=== PATIENT | female | born 1970 | race Caucasian/White ===

== ENCOUNTER → 2022-04-27 13:03 | Outpatient (CLI) | payer SELFPAY ==
--- NOTE | ~2022-04-27 | XR_ITS ---
EXAM: XR knee RT 3V, XR knee LT 3V DATE: 04/27/2022 13:31 HISTORY: M17.10 - Unilateral primary osteoarthritis, unspecified knee . COMPARISON: None available. FINDINGS: Decreased mineralization. No fracture or dislocation. No lytic or blastic lesion. Mild rizwan ateral medial and lateral joint space narrowing. Mild bilateral medial and patellofemoral osteophytos is. No erosion or periosteal change. Soft tissues within normal limits. IMPRESSION: Mild bilateral knee osteoarthritis. Reviewed, dictated and finalized at location K. IMPRESSION: Mild bilateral knee osteoarthritis.
== END ==
PROVIDERS: PCP Internal Medicine; Visit Provider Internal Medicine
DX: M17.0 Bilateral primary osteoarthritis of knee (principal)
CPT/HCPCS: 73562

== ENCOUNTER → 2023-01-14 07:57 | Outpatient (CLI) | payer OTHER, SELFPAY ==
--- NOTE | ~2023-01-14 | US_ITS ---
EXAMINATION: US abdomen limited DATE: 01/14/2023 08:42 INDICATION: Unspecified abdominal pain, history of pancreatitis TECHNIQUE: Multiple grayscale and Doppler ultrasound images of the abdomen were obtained. COMPARISON: None available FINDINGS: There is questionable mild enlargement of the pancreatic duct. The liver is normal with nor mal echogenicity and echotexture. No surface nodularity. Normal hepatopetal flow in the main portal v ein. There is a 3 mm polyp or small stone of the gallbladder fundus. There is no gallbladder wall thi ckening or pericholecystic fluid. The mildly dilated common bile duct measures 7 mm. There was no son ographic Evans sign however sensitivity can be decreased by pain medication. IMPRESSION: 1. Mildly dilated common bile duct and possible mild enlargement of the pancreatic duct. Findings cou ld be seen in the setting of prior pancreatitis as given in the clinical history or also stone or str icture of the distal ducts. Consider further evaluation with MRCP or pancreas protocol CT without and with contrast. Reviewed, dictated and finalized at location L. IMPRESSION: 1. Mildly dilated common bile duct and possible mild enlargement of the pancrea tic duct. Findings could be seen in the setting of prior pancreatitis as given in the clinical history or also stone or stricture of the distal ducts. Conside r further evaluation with MRCP or pancreas protocol CT without and with contras t.
== END ==
PROVIDERS: PCP Internal Medicine; Visit Provider Internal Medicine
DX: R79.89 Other specified abnormal findings of blood chemistry (principal); R10.9 Unspecified abdominal pain; Z87.19 Personal history of other diseases of the digestive system
CPT/HCPCS: 76705

== ENCOUNTER 2023-02-12 05:59 | Day surgery (SDC) | payer OTHER, SELFPAY ==
[2023-02-02 14:48] VITALS: BMI 20.9
[2023-02-12 06:38] VITALS: BP 101/88; PULSE 83; RESP 20; TEMP 37.2; O2SAT 96; BMI 19.1
--- NOTE | 2023-02-12 07:02 | WPDANESEPPF ---
Anes - Initial Pre Proc Eval Procedure: Operation Date: 02/12/23 07:30 Proposed Procedures p Partial Plantar Fasciectomy Left Foot - Shayan Berger JR, MD Date/Time: 02/12/23 07:02 Surgeon: Shayan Berger JR, MD Pre Op Diagnosis: Plantar Fasciitis Left Foot Patient Data Age: 52 Gender: F Height: 1.68 m Weight: 53.9 kg Last Vital Signs Temp 37.2 C 02/12/23 06:38 Pulse 83 02/12/23 06:38 Resp 20 02/12/23 06:38 BP 101/88 02/12/23 06:38 Pulse Ox 96 02/12/23 06:38 O2 Del Method Room Air 02/12/23 06:38 Allergies Allergy/AdvReac Type Severity Reaction Status Date / Time morphine Allergy Unknown Swelling Verified 02/12/23 06:33 Penicillins Allergy Unknown Hives Verified 02/12/23 06:33 itzel Allergy Unknown Unknown Verified 02/12/23 06:33 ibuprofen AdvReac Unknown Ulcers Verified 02/12/23 06:33 Home Medications Medication Instructions Recorded Confirmed Type tramadol 50 mg tablet 50 mg PO Q4-6H PRN pain #60 tabs 02/03/23 02/12/23 Rx Patient hx anesthesia problems: none Family hx anesthesia problems: none Results Review: All pre-operative results and documents have been reviewed as part of the pre-operative evaluation. [facility] Past Medical History Medical History Abdominal pain BMI 21.0-21.9, adult BMI 23.0-23.9, adult Breast cancer screening Colon cancer screening DJD (degenerative joint disease) of knee Elevated LFTs Encounter for preventive health examination Encounter to establish care History of skin cancer Hx of pancreatitis Left foot pain Tobacco abuse Social History Social History Years smoked: 20 Smoking status: Current every day smoker Tobacco type: cigarettes Second hand tobacco smoke exposure: Yes Alcohol intake: never Substance use: never Substance use type: does not use Lack of Transportation: No Lack of Food: Never True Current Housing: I Have Housing Concerned About Future Housing: No Difficulty Paying Gas/Electric Bills: No Difficulty Paying for Meds: No Currently Unemployed: No Education: High School Diploma/GED Difficulty w/ Childcare or Family Care: No Living arrangements: with family Occupation/Education: occupation Gender identity (if verbalized by the patient): Female Spiritual care concerns: No Anes - Eval Final PreProcedure Day of Procedure 02/12/23 07:02 Patient weight: normal Heart: regular rate and rhythm Lungs: clear to auscultation Airway: Mallampati scale class 1 Neurological: alert and oriented Last oral intake: >/= 8 hours ASA classification: II Emergent: no Anesthetic plan: proceed Anesthesia type and monitoring: general GIVS and standard monitoring Results Review: All pre-operative results and documents have been reviewed as part of the pre-operative evaluation. Informed Consent: The patient's anesthetic plan and its attendant risks and benefits were discussed with the patient/family/POA. Questions were solicited and answers provided to the satisfaction of the patient/family/POA.
[2023-02-12] MEDS: LACTATED RINGERS 1,000 ML 30 ML IV CONT (07:03)
[2023-02-12] MEDS: SCOPOLAMINE 1.5 MG PATCH TRANSDERM (07:06)
--- NOTE | 2023-02-12 07:21 | WPDHPUPDATE1 ---
History and Physical Update Update Date/Time: 02/12/23 07:21 History and Physical has been reviewed, including an updated exam of the patient. There are NO changes in the patient's condition. Risks, benefits, and alternatives have been discussed and questions answered. Patient agrees to proceed with procedure.
[2023-02-12] MEDS: ceFAZolin SODIUM 2 GM/20 ML SW SYRINGE IV PUSH (07:31)
[2023-02-12 08:16] VITALS: BP 88/67; PULSE 67; RESP 14; O2SAT 99
--- NOTE | 2023-02-12 08:20 | P.OP_ITS ---
Procedure Note - Detailed Date of Procedure 02/12/23 Pre-op Diagnosis Plantar Fasciitis Left Foot Post-op Diagnosis Same Procedure Performed Partial Plantar fasciectomy left foot Surgeon Shayan Berger JR, DPM Anesthesia MAC and Local Indications Recalcitrant left heel pain Findings Narrow thick proximal plantar facia Description of Procedure Under mild sedation, the patient was brought in to the operating room, placed on the operating table in the supine position. A pneumatic ankle tourniquet was placed about the patient's ankle. Following general anesthesia, local anesthesia was obtained about the affected lower extremity utilizing 20 mL of a one to mix of 2% Lidocaine plain and 0.5% Marcaine plain to the tibial nerve. The foot was then scrubbed, prepped, and draped in the usual aseptic manner. An Esmarch bandage was then used to exsanguinate the patient's foot and the pneumatic ankle tourniquet was then inflated. Next, an incision was made starting distal to the medial tubercle of the calca neus extending distally 3cm. All bleeders were cauterized as necessary. An additional 10mL of 2% Lidocaine plain were infiltrated proximal to the incision. Next the dissection was continued down to the plantar fascia it was exposed medially and laterally with [place] retractors. Two thirds of the medial plantar fascia was transected and a 4mm portion was also cut and discarded. The wound site was flushed with sterile saline. The deep subcutaneous tissue was reapproximated with 4.0 Vicryl and the skin was reapproximated with 2.0 Prolene and 3.0 Prolene in Vertical mattress and Simple interrupted suture technique correspondingly. Upon completion of the procedure, the plantar incision was dressed with adaptic, 4x4 gauze, kerlix and coban. The pneumatic ankle tourniquet was then deflated and a prompt hyperemic response was noted to all digits of the affected foot. A CAM Walker boot was then applied. The patient did very well with the procedure and the anesthesia. The patient was transferred to the recovery room with vital signs stable and vascular status intact to all toes of the affected foot. Following a period of postoperative monitoring, the patient will be discharged home on the following written and oral postoperative instructions: 1. The patient should keep the dressing clean, dry, and intact. Use a cast protector bag with showers. 2. The patient will be strictly protected weight bearing with CAM walker boot. 3. Patient should ice and elevate the affected foot when at rest. 4. The patient is to contact Dr. Berger for all postop care and if any problems arise. 5. Prescriptions were written for Percocet 5/325 dispensed 40 to be taken 1 p.o. q.4-6 hours as needed for severe pain. Estimated Blood Loss 1 Pathology None sent Complications No immediate complications Condition Stable Disposition Same day
[2023-02-12] MEDS: LIDOCAINE HCL 2% LOCAL INJ 20 ML VIAL INFILTRATE (08:21)
[2023-02-12 08:41] VITALS: BP 115/76; PULSE 75; RESP 16; O2SAT 100
[2023-02-12 09:00] VITALS: BP 119/82; PULSE 60; RESP 16; O2SAT 98
--- NOTE | 2023-02-12 09:40 | WPDANESPN ---
Anes - Prog Note Post-Op Date/Time: 02/12/23 09:40 Cardiovascular status: normal Respiratory status: normal Airway patency: baseline Mental status: baseline Post-Op hydration status: normal Vital Signs: Last Vital Signs Temp 37.2 C 02/12/23 06:38 Pulse 60 02/12/23 09:00 Resp 16 02/12/23 09:00 BP 119/82 02/12/23 09:00 Pulse Ox 98 02/12/23 09:00 O2 Del Method Room Air 02/12/23 09:00 Pain Score (VAS): 0 I/O: Intake & Output 02/11/23 02/12/23 02/12/23 23:59 07:59 15:59 Intake Total 150 Balance 150 Patient Feedback: Patient satisfied with anesthetic care.
== END 2023-02-12 09:16 | disposition home or self-care (01) ==
PROVIDERS: PCP Internal Medicine; Visit Provider Podiatrist Foot & Ankle Surgery
PROC: (CPT 29893; principal; 2023-02-12 07:30)
DX: M72.2 Plantar fascial fibromatosis (principal)
CPT/HCPCS: 28060

== ENCOUNTER 2023-02-19 10:09 | Emergency (ER) | payer OTHER, SELFPAY ==
--- NOTE | ~2023-02-19 | CT_ITS ---
EXAMINATION: CT abdomen pelvis wo/w con DATE: 02/19/2023 13:25 INDICATION: Upper abdominal pain. Pancreatic ductal dilation. TECHNIQUE: Computed tomography (CT) of the abdomen and pelvis was performed without and with 100 cc O mnipaque 350 intravenous contrast. The dose-length product was 587.01 mGy-cm. Automated exposure cont rol and iterative reconstruction technique were employed. COMPARISON: None. FINDINGS: There is a possible subtle hypovascular mass of the pancreatic head measuring 3.7 x 1.9 cm, seen on postcontrast venous phase only. There are pancreatic calcifications, consistent with chronic pancreatitis. Gallbladder is present. Mild intrahepatic biliary dilatation. The spleen, adrenal glands and kidneys are unremarkable. Nonobstructive bowel gas pattern. No significant vascular abnormality. Small amount of free fluid in the pelvis, likely physiologic. No free air. Gallbladder is present. No significant vascular abnormality. No lymphadenopathy. There is dilated pancreatic duct. Lung bases are unremarkable. No significant pleural or pericardial effusion. IMPRESSION: 1. Chronic pancreatitis with dilated pancreatic duct. Possible subtle pancreatic head mass seen on po stcontrast venous phase imaging only. Recommend correlation with MRI of the abdomen without and with contrast for further assessment. Mild intra and extrahepatic biliary dilation. Reviewed, dictated and finalized at location B. IMPRESSION: 1. Chronic pancreatitis with dilated pancreatic duct. Possible subtle pancreati c head mass seen on postcontrast venous phase imaging only. Recommend correlati on with MRI of the abdomen without and with contrast for further assessment. Mi ld intra and extrahepatic biliary dilation.
[2023-02-19 11:03] VITALS: BP 121/84; PULSE 110; RESP 14; TEMP 36.7; O2SAT 98
[2023-02-19 11:31] LABS: Basophils Percent Auto 0.6 % (0.2-1.2); Eosinophils Absolute Auto 0.2 K/mm3 (0-0.3); Eosinophils Percent Auto 2.2 % (0-4.4); Hematocrit 50.4 % (37.0-47.0); Hemoglobin 16.4 g/dL (12.0-15.0); Immature Granulocyte Absolute 0.02 K/mm3 (0.00-0.031); Immature Granulocyte Percent A 0.3 % (0-0.5); Lymphocytes Absolute Auto 1.75 K/mm3 (0.9-3.2); Lymphocytes Percent Auto 25.7 % (18.3-44.2); Mean Corpuscular HGB Conc 32.5 g/dl (32-36); Mean Corpuscular Hemoglobin 28.4 pg (26-34); Mean Corpuscular Volume 87.2 fl (80-100); Mean Platelet Volume 9.3 fl (7.4-10.4); Monocytes Absolute Auto 0.5 K/mm3 (0.1-0.6); Monocytes Percent Auto 6.9 % (2.6-8.5); Neutrophils Absolute Auto 4.4 K/mm3 (1.3-6.7); Neutrophils Percent Auto 64.3 % (45.5-73.1); Platelet Count Result 287 k/mm3 (150-375); Red Blood Count 5.78 M/mm3 (4.2-5.4); Red Cell Distribution Width 12.6 % (11.5-14.5); White Blood Count 6.8 K/mm3 (4.5-10.0)
[2023-02-19 11:34] LABS: Appearance Urine Cloudy (Clear); Bacteria Urine None Seen /hpf; Bilirubin Urine Negative (Negative); Blood Urine Negative (Negative); Color Urine Yellow (Yellow); Glucose Urine UA Negative (Negative); Ketones Urine Negative (Negative); Leukocyte Esterase Ur Negative LEU/UL (Negative); Nitrate Urine Negative (Negative); Non Pathogenic Casts 0-2; Protein Urine Negative (Negative); RBC Urine 0-2 /hpf (0-2); Specific Grav Ur 1.004 (1.001-1.035); Squamous Epithelial Cell Urine None seen /hpf (Few); Urobilinogen Urine 0.2 mg/dL (<2.0); WBC Urine 0-5 /hpf; pH Urine 7.5 (5.0-9.0)
[2023-02-19 11:40] LABS: Alanine Aminotransferase 80 U/L (6-35); Albumin Level 4.9 g/dL (3.5-5.1); Alkaline Phosphatase 95 U/L (38-126); Anion Gap 8 mmol/L (8-16); Aspartate Amino Transferase 48 U/L (14-36); Bilirubin,Total 0.9 mg/dL (0.2-1.3); Blood Urea Nitrogen 7 mg/dL (7-17); Calcium 10.1 mg/dL (8.4-10.2); Carbon Dioxide 27 mmol/L (22-30); Chloride 103 mmol/L (98-107); Estimated CRCL calculation 82 ml/min; Estimated Glomerular Filt Rate > 60; Glucose 97 mg/dL (65-110); Lipase 207 U/L (23-300); Potassium 4.2 mmol/L (3.4-5.0); Sodium 138 mmol/L (137-145)
[2023-02-19 11:45] LABS: Add Urine Microscopic? YES
[2023-02-19 12:37] LABS: Pregnancy On Board Control Positive; Urine Pregnancy Test Negative
[2023-02-19] MEDS: SODIUM CHLORIDE 0.9% IV 1,000 ML 999 ML IV CONT (13:04)
[2023-02-19] MEDS: ONDANSETRON INJ 4 MG/2 ML VIAL IV PUSH (13:04)
[2023-02-19 13:30] VITALS: BP 119/94; PULSE 82; RESP 22; O2SAT 94
[2023-02-19 14:00] VITALS: BP 119/70; PULSE 65; RESP 18; O2SAT 100
[2023-02-19 14:18] VITALS: BP 96/68; PULSE 74; RESP 20; O2SAT 100
--- NOTE | 2023-02-19 15:15 | ED.ABDPAIN ---
HPI - Abdominal Pain General Chief Complaint: Abdominal Pain Stated Complaint: ruq pain/back pain/nausea Time Seen by Provider: 02/19/23 12:07 Source: patient, RN notes reviewed and old records reviewed Mode of arrival: ambulatory Limitations: no limitations History of Present Illness HPI narrative: This is a 52 year old female with history of chronic pancreatitis who presents for upper abdominal pain. she reports having intermittent upper abdominal pain for several weeks. This pain will last from 15 minutes - 1 hour. She denies having pain currently . She also reprots her pain will radiate to her back. Her pain does worsen with eating or drinking. She had an abdominal US 1 month ago. She states it shows duct dilation so she has MRI abdomen ordered next week. SHe states her pain is worsening so she came to ER. She is having some nausea and vomiting with her pain. She has not had emesis in 2 days. She reports normal bowel movements. She denies fever or chills. Related Data Allergies Allergy/AdvReac Type Severity Reaction Status Date / Time morphine Allergy Unknown Swelling Verified 02/12/23 06:33 Penicillins Allergy Unknown Hives Verified 02/12/23 06:33 itzel Allergy Unknown Unknown Verified 02/12/23 06:33 ibuprofen AdvReac Unknown Ulcers Verified 02/12/23 06:33 Review of Systems Constitutional: Constitutional: Denies weakness Cardiovascular: Cardiovascular: Denies syncope, Denies rapid heart rate, Denies irregular heart rhythm, Denies leg edema and Denies dyspnea Respiratory: Respiratory: Denies chest congestion, Denies hemoptysis, Denies excessive phlegm production and Denies dyspnea Gastrointestinal: Gastrointestinal: Reports abdominal pain, Denies hematochezia, Denies diarrhea, Reports nausea and Reports vomiting Genitourinary: Genitourinary: Denies hematuria and Denies dysuria Musculoskeletal: Musculoskeletal: Reports arthralgias (left foot pain from surgery), Denies joint swelling, Denies loss of height and Denies muscle weakness Neurologic: Denies syncope, Denies focal weakness and Denies weakness PMFSH Past Medical History Medical History Abdominal pain BMI 21.0-21.9, adult BMI 23.0-23.9, adult Breast cancer screening Colon cancer screening DJD (degenerative joint disease) of knee Elevated LFTs Encounter for preventive health examination Encounter to establish care History of skin cancer Hx of pancreatitis Left foot pain Tobacco abuse Social History Social History Years smoked: 20 Smoking status: Current every day smoker Tobacco type: cigarettes Second hand tobacco smoke exposure: Yes Alcohol intake: never Substance use: never Substance use type: does not use Lack of Transportation: No Lack of Food: Never True Current Housing: I Have Housing Concerned About Future Housing: No Difficulty Paying Gas/Electric Bills: No Difficulty Paying for Meds: No Currently Unemployed: No Education: High School Diploma/GED Difficulty w/ Childcare or Family Care: No Living arrangements: with family Occupation/Education: occupation Gender identity (if verbalized by the patient): Female Spiritual care concerns: No Exam Const: General: no acute distress and alert Nutritional Appearance: well nourished Orientation/consciousness: patient oriented x3 HENMT: Head: normal to inspection Mouth: Yes Normal oral and palatal mucosa present Eyes: EOM: EOMs intact bilaterally Neck: Neck: normal visual inspection Chest: Chest palpation & inspection: normal inspection of the chest Resp: Effort & Inspection: normal respiratory effort Auscultation: clear to auscultation bilaterally Cardio: Rate: regular rate Rhythm: regular rhythm Heart sounds: no murmurs GI: GI Palp: Yes Soft to palpation, Yes Tenderness to palpation present (GI) (epigastric, LUQ), No Guarding due to
[2023-02-19] MEDS: PANTOPRAZOLE SODIUM IV 40 MG VIAL IV PUSH (15:30)
[2023-02-19] MEDS: KETOROLAC 15 MG/ML VIAL (*BKC) IV PUSH (15:31)
[2023-02-19 16:04] VITALS: BP 118/78; PULSE 82; RESP 16; TEMP 36.6; O2SAT 98
== END 2023-02-19 16:05 | disposition home or self-care (01) ==
PROVIDERS: Emergency Medicine; Emergency Provider General Practice; PCP Internal Medicine
DX: K86.1 Other chronic pancreatitis (principal); R10.13 Epigastric pain; M17.9 Osteoarthritis of knee, unspecified; Z85.828 Personal history of other malignant neoplasm of skin; F17.210 Nicotine dependence, cigarettes, uncomplicated; R93.5 Abnormal findings on diagnostic imaging of other abdominal regions, including retroperitoneum
CPT/HCPCS: 36415; 74178; 80053; 81001; 81025; 83690; 85025; 96361; 96374; 96375; 99284; C9113; J1885; J2405; J7030; Q9967

== ENCOUNTER → 2023-02-23 08:09 | Outpatient (CLI) | payer OTHER, SELFPAY ==
--- NOTE | ~2023-02-23 | MR_ITS ---
EXAMINATION: MR abdomen wo/w con DATE: 02/23/2023 09:15 INDICATION: Unspecified abdominal pain. TECHNIQUE: Magnetic resonance imaging (MRI) of the abdomen was performed without and with 12 mL Multi Laury intravenous contrast. COMPARISON: CT abdomen and pelvis 02/19/2023 FINDINGS: There is an 8 mm cyst in the liver. The gallbladder is normal in size. The common duct is mildly dila juli to 8 mm. No choledocholithiasis. The spleen is normal. The pancreatic duct is mildly dilated. The CT demonstrates scattered calcifications in the head of the pancreas. These findings are consistent with chronic pancreatitis. The adrenal glands and kidneys are normal. There are no dilated loops of b owel. There is periceliac and peripancreatic lymphadenopathy. For example, a peripancreatic node liborio ures 4.6 x 1.8 cm. There is no free intraperitoneal fluid. IMPRESSION: 1. Chronic pancreatitis. 2. Periceliac and peripancreatic lymphadenopathy. The differential diagnosis includes reactive lympha denopathy, metastatic disease, and lymphoma. Reviewed, dictated and finalized at location A. IMPRESSION: 1. Chronic pancreatitis. 2. Periceliac and peripancreatic lymphadenopathy. The differential diagnosis in cludes reactive lymphadenopathy, metastatic disease, and lymphoma.
== END ==
PROVIDERS: PCP Internal Medicine; Visit Provider Internal Medicine
DX: R10.9 Unspecified abdominal pain (principal); R93.5 Abnormal findings on diagnostic imaging of other abdominal regions, including retroperitoneum; Z87.19 Personal history of other diseases of the digestive system; K86.89 Other specified diseases of pancreas
CPT/HCPCS: 74183; A9577

== ENCOUNTER 2023-04-15 07:56 | Outpatient (CLI) | payer OTHER, SELFPAY ==
--- NOTE | ~2023-04-15 | PE_ITS ---
EXAMINATION: PET skull to mid thigh DATE: 04/15/2023 09:49 INDICATION: Abnormal finding on prior abdominal CT and MRI TECHNIQUE: Blood glucose level was 101 mg/dL. 9.589 mCi of 18-fluorodeoxyglucose (18-FDG) was adminis tered i.v. Low dose computed tomography (CT) images were acquired from the base of the brain to the p roximal thighs for attenuation correction and anatomic localization. Positron emission tomography (PE T) images were acquired in the same distribution beginning 60 minutes after injection. Images includi ng fused PET/CT images were reconstructed in axial, coronal, and sagittal planes. Automated exposure control technique was employed. The dose-length product was 481.20mGy-cm. COMPARISON: CT dated 02/19/2023 and MRI dated 02/23/2023 FINDINGS: Head/neck: There is symmetric increased activity in the oral cavity, palatine tonsils, laryngeal muscles and ocu lar muscles without CT correlate, likely physiologic. No pathologically enlarged cervical lymphadenop athy or suspicious foci of increased FDG uptake in the visualized head or neck. Chest: Mild biapical pleural-parenchymal scarring. Small calcified nodules in the left lower lobe consistent with old granulomatous disease. No suspicious pulmonary nodules, pneumonia or pleural effusion. Hear t size is normal. No pericardial effusion. Thoracic aorta is normal in caliber. No pathologically enl arged or FDG avid thoracic lymphadenopathy. Abdomen/pelvis/proximal thighs: Physiologic renal accumulation and excretion of FDG activity in the kidneys, bladder and along portio ns of ureters. Normal degree and heterogenous pattern of increased uptake throughout the liver withou t radiologic correlate or dominant FDG avid lesion. The gallbladder, spleen and bilateral adrenal gla nds are normal. Enhancement or dystrophic calcifications in the region of the head of the pancreas co nsistent with stigmata of chronic pancreatitis. There is focal increased FDG uptake with maximal SUV of 5.0 associated with the centrally hypodense masslike region within the uncinate process of the baron creas. There is also increased uptake associated with the previous noted mildly enlarged paraceliac l ymphadenopathy with maximal SUV levels of 5.1 and 4.4. Anteverted uterus is unremarkable. Mild uptake scattered throughout the bowels without radiologic correlate, also likely physiologic. No other abno rmal foci of increased FDG uptake or pathologically enlarged lymphadenopathy in the abdomen, pelvis o r proximal thighs. Musculoskeletal: No suspicious lytic, blastic or FDG avid bone lesions identified. IMPRESSION: 1. Mild increased uptake in masslike region of decreased density at the uncinate process of the pancr eas as well as within a few adjacent mildly enlarged paraceliac lymph nodes. This could be related to acute on chronic pancreatitis and associated reactive lymphadenopathy although differential does inc lude pancreatic cancer with local metastases. Would recommend further evaluation with endoscopic ultr asound with biopsy. Reviewed, dictated and finalized at location L. IMPRESSION: 1. Mild increased uptake in masslike region of decreased density at the uncinat e process of the pancreas as well as within a few adjacent mildly enlarged para celiac lymph nodes. This could be related to acute on chronic pancreatitis and associated reactive lymphadenopathy although differential does include pancreat ic cancer with local metastases. Would recommend further evaluation with endosc opic ultrasound with biopsy.
[2023-04-15 08:15] LABS: Glucose Point of Care 101 mg/dl (65-105)
== END 2023-04-15 07:57 | disposition home or self-care (01) ==
PROVIDERS: PCP Internal Medicine; Visit Provider Internal Medicine
DX: R93.5 Abnormal findings on diagnostic imaging of other abdominal regions, including retroperitoneum (principal); R59.1 Generalized enlarged lymph nodes
CPT/HCPCS: 78815; A9552